=== PATIENT | male | born 1940 | race Caucasian/White ===

== ENCOUNTER → 2023-03-10 09:57 | Outpatient (BNVA) | payer MEDICARE, SELFPAY | PROVIDERS: PCP Family Medicine; Referring Provider Family Medicine; Visit Provider Psychiatry & Neurology Neurology | DX: G25.3 Myoclonus (principal) | CPT/HCPCS: 99203 ==

== ENCOUNTER 2023-04-02 14:16 | Outpatient (CLI) | payer MEDICARE, SELFPAY ==
--- NOTE | 2023-04-02 14:20 | USCV_ITS ---
Tobias Barrientos Age: 82 Gender: M : 1940 Exam Date: 04/02/2023 14:47 Ordering Phys: Chadwick Wu MD Technologist: [email or web address] [place] [facility] [place]: TIA Risk Factors: Previous Vascular Surgery: Right Brachial BP: / Left Brachial BP: / Right Left Velocity (cm/s) Spectral Plaque Velocity (cm/s) Spectral Plaque Syst/Diast Broadening Syst/Diast Broadening 106.10/20.80 Prox CCA 67.50 / 14.50 82.00/ 10.10 Mid CCA 85.40 / 13.70 79.80/ 15.40 Distal CCA 85.40 / 12.80 67.30/ 12.10 Prox ICA 103.40/ 17.10 90.40/ 16.50 Mid ICA 93.10 / 14.90 90.40/ 15.40 Distal ICA 43.80 / 10.40 102.50 ECA 140.70 0.85 ICA/CCA 1.21 Antegrade Vertebral Antegrade 44.30/ 7.80 cm/s 17.10/ 5.00 cm/s Tri Subclavian Bi 174.5 178.7 0 0 CONCLUSIONS Right ICA stenosis <50%. Mild atheromatous plaque right carotid bulb/ICA. Left ICA stenosis <50%. Mild atheromatous plaque left carotid bulb/ICA. Normal antegrade Doppler flow noted in the right vertebral artery. Normal antegrade Doppler flow noted in the left vertebral artery. Jose E Klein MD (Electronically Signed) Final Date: 02 April 2023 15:44 S
== END 2023-04-02 14:17 | disposition home or self-care (01) ==
LOC: RAD 14:16
PROVIDERS: PCP Family Medicine; Visit Provider Psychiatry & Neurology Neurology
DX: G45.9 Transient cerebral ischemic attack, unspecified (principal)
CPT/HCPCS: 93880

== ENCOUNTER → 2023-04-20 14:12 | Outpatient (BNVA) | payer MEDICARE, SELFPAY | PROVIDERS: PCP Family Medicine; Visit Provider Psychiatry & Neurology Neurology | DX: G25.3 Myoclonus (principal) | CPT/HCPCS: 95813; 99212 ==

== ENCOUNTER → 2023-06-10 11:41 | Outpatient (BNVA) | payer MEDICARE, SELFPAY | PROVIDERS: PCP Family Medicine; Visit Provider Psychiatry & Neurology Neurology | DX: G25.3 Myoclonus (principal) | CPT/HCPCS: 36415; 80177; 99212 ==

== ENCOUNTER → 2023-09-29 14:19 | Outpatient (BNVA) | payer MEDICARE, SELFPAY | PROVIDERS: PCP Family Medicine; Visit Provider Psychiatry & Neurology Neurology | DX: G25.3 Myoclonus (principal) | CPT/HCPCS: 36415; 80177; 99212 ==

== ENCOUNTER → 2023-11-19 12:22 | Outpatient (BNVA) | payer MEDICARE, SELFPAY | PROVIDERS: PCP Family Medicine; Visit Provider Psychiatry & Neurology Neurology | DX: G25.3 Myoclonus (principal) | CPT/HCPCS: 95816; 95819 ==

== ENCOUNTER → 2024-03-28 14:25 | Outpatient (BNVA) | payer MEDICARE, SELFPAY | PROVIDERS: PCP Family Medicine; Visit Provider Psychiatry & Neurology Neurology | DX: G25.3 Myoclonus (principal) | CPT/HCPCS: 36415; 80177; 99212 ==

== ENCOUNTER → 2024-08-08 15:03 | Outpatient (BNVA) | payer MEDICARE, SELFPAY | PROVIDERS: PCP Family Medicine; Visit Provider Psychiatry & Neurology Neurology | DX: G25.3 Myoclonus (principal) | CPT/HCPCS: 99212 ==